=== PATIENT | female | born 1995 | race Caucasian/White ===

== ENCOUNTER 2019-04-24 03:55 | Emergency (ER) | payer SELFPAY ==
[2019-04-24 03:54] VITALS: BP 116/72; PULSE 80; RESP 16; TEMP 37.2; O2SAT 99
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
[2019-04-24] MEDS: Acetaminophen 325 MG TAB 650 MG PO (04:07)
--- NOTE | 2019-04-24 04:19 | NUR.NOTE ---
Nursing Note: ICE pack applied to swelling left sided of head and left eye.
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
--- NOTE | 2019-04-24 04:38 | NUR.NOTE ---
Nursing Note: Offered to contact [facility] but pt declined, pt stated she would find some place to stay this morning.
== END 2019-04-24 04:36 | disposition home or self-care (01) ==
LOC: ER 04:54
PROVIDERS: Emergency Provider Emergency Medicine
DX: S00.12XA Contusion of left eyelid and periocular area, initial encounter (principal); S09.90XA Unspecified injury of head, initial encounter; R51 Headache; Y04.0XXA Assault by unarmed brawl or fight, initial encounter
CPT/HCPCS: 99284; 70450

== ENCOUNTER 2022-04-21 04:00 | Outpatient (CLI) | payer SELFPAY ==
[2022-04-21 13:10] LABS: Abs Immature Grans 0.02 10^3/uL (0.0-0.06); Absolute Basophil Count 0.06 10^3/uL (0.0-0.2); Absolute Eosinophil Count 0.03 10^3/uL (0.0-0.7); Absolute Monocyte Count 0.78 10^3/uL (0.1-0.8); Absolute Neutrophil Count 6.27 10^3/uL (1.2-6.7); Basophils % 0.6; Eosinophils % 0.3; HCT 39.5 % (36.0-46.0); HGB 12.4 g/dL (11.2-15.7); Immature Grans % 0.2; Lymphocytes % 33.5; MCH 30.4 pg (27.0-33.0); MCHC 31.4 % (32.0-36.0); MCV 97 fL (80-95); MPV 10.9 fL (8.0-11.0); Monocytes % 7.2; Neutrophils % 58.2; Platelet Count 313 10^3/uL (130-400); RBC 4.08 10^6/uL (3.93-5.22); RDW 11.7 % (11.7-14.6); RDW-SD 41.2 fL; WBC 10.76 10^3/uL (4.4-10.8)
== END 2022-04-21 04:01 | disposition home or self-care (01) ==
LOC: LOS 04:01
PROVIDERS: Visit Provider Nurse Practitioner Family
DX: R59.0 Localized enlarged lymph nodes (principal)
CPT/HCPCS: 36415; 85025

== ENCOUNTER 2022-04-22 16:16 | Outpatient (REF) | payer SELFPAY | END 2022-04-22 16:17 | disposition home or self-care (01) | LOC: LBN 16:16 | PROVIDERS: Visit Provider Nurse Practitioner Family ==

== ENCOUNTER 2022-11-15 12:39 | Emergency (ER) | payer SELFPAY ==
[2022-11-15 12:44] VITALS: BP 143/99; PULSE 89; RESP 18; TEMP 36.7; O2SAT 98
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
== END 2022-11-15 15:36 | disposition home or self-care (01) ==
PROVIDERS: Emergency Provider Emergency Medicine
DX: T74.21XA Adult sexual abuse, confirmed, initial encounter (principal); S61.512A Laceration without foreign body of left wrist, initial encounter; X78.8XXA Intentional self-harm by other sharp object, initial encounter
CPT/HCPCS: 99281; 99283